=== PATIENT | male | born 1935 | race Caucasian/White ===

== ENCOUNTER 2017-05-05 05:45 | Inpatient (IN) | payer OTHER ==
[~2017-05-05] VITALS: Ht 175.3 cm; Wt 81.9 kg
[2017-05-05] VITALS (15 sets, daily range): BP systolic 82–162; BP diastolic 52–77
--- NOTE | 2017-05-05 12:50 | NUR ---
REC'D PT FROM RECOVERY ROOM S/P LEFT HIP REPLACEMENT. PT IS AAOX4. TELE #2 NSR. PT C/O 5 HEADACHE AND BACK PAIN. LUNG SOUNDS CLEAR. NO SOB NOTED. PT HAS INCISION WITH MARIELLA, TELFA 4X4, ABD DRESSING TO LEFT OUTER THIGH, CDI. HEMOVAC IN PLACE. PT HAS MANUEL CATH TO GRAVITY DRAINING YELLOW URINE. IV NOTED TO RFA. INTACT AND PATENT. ORIENTED PT TO CALL LIGHT. BED IN LOWEST POSITION. WILL CONTINUE TO MONITOR.
--- NOTE | 2017-05-05 13:22 | NUR ---
PT'S LU=[id number]/57 MAP=77. PT C/O BACK PAIN. MEDICATED WITH NORCO ORDERED (SEE MAR).
--- NOTE | 2017-05-05 13:35 | NUR ---
PT ENDORSED TO EMERY NELSON.
--- NOTE | 2017-05-05 13:49 | NUR ---
ASSUMED CARE OF PATIENT FROM EMERY SAUCEDA. DR ATWOOD PAGED FOR ADDITIONAL ORDERS, AWAITING CALL BACK.
--- NOTE | 2017-05-05 13:50 | NUR ---
PAGED DR ROSE. AWAITING CALL BACK
--- NOTE | 2017-05-05 14:15 | NUR ---
DR BECKHAM AT BEDSIDE TO EVALUATE PATIENT. AWARE OF CURRENT LOW BP AND H/H. WITH NEW ORDER TO TRANSFUSE 1 UNIT PRBC AND BOLUS 25O ML NS. BOLUS STARTED.
--- NOTE | 2017-05-05 14:45 | NUR ---
DR BECKHAM BACK AT BEDSIDE TO REEVALUATE PATIENT.
--- NOTE | 2017-05-05 15:48 | NUR ---
BLOOD TRANSFUSION 1 OF 1 STARTED TO RFA IV SITE. UNIT #[id number]. MONITORED FOR ANY REACTIONS, NONE NOTED AT THIS TIME.
[2017-05-05] MEDS ORDERED: LOSARTAN POTAS100 M1 PO (15:59)
[2017-05-05] MEDS ORDERED: K10 PO (16:01)
[2017-05-05] MEDS ORDERED: CENTRUM SILVER1 EACH PO (16:01)
[2017-05-05] MEDS ORDERED: CHLORTHALIDONE25 MG PO (16:01)
[2017-05-05] MEDS ORDERED: VITAMIN-D1000 IU PO (16:01)
[2017-05-05] MEDS ORDERED: CRESTOR10 M1 PO (16:02)
[2017-05-05] MEDS ORDERED: APAP500 MG PO (16:03)
--- NOTE | 2017-05-05 16:03 | NUR ---
BLOOD TRANSFUSION INFUSING WELL WITH NO ADVERSE REACTIONS. CURRENTLY INFUSING AT 100ML/HR TO RFA IV SITE. WILL CONTINUE TO MONITOR.
--- NOTE | 2017-05-05 16:20 | NUR ---
SEATER ASSEMBLER REPORTED BIGEMINY X4 BEATS. BLOOD TRANSFUSION ONGOING. PT ASYMPOMATIC. NO ACUTE DISTRESS NOTED. DR ATWOOD MADE AWARE.
[2017-05-05 16:32] LABS: MAGNESIUM 1.3 mg/dL (1.8-2.4); PHOSPHOROUS 3.5 mg/dL (2.5-4.9)
--- NOTE | 2017-05-05 17:17 | NUR ---
RECEIVED CALL FROM DR BECKHAM, UPDATED ON PATIENT'S CONDITION. BLOOD TRANSFUSION STILL INFUSING WELL WITH NO ADVERSE REACTIONS. WITH NEW ORDER FOR LACTATED RINGER'S. NOTED AND CARRIED OUT.
--- NOTE | 2017-05-05 19:20 | NUR ---
BLOOD TRANSFUSION COMPLETE. PT TOLERATED WELL WITHOUT ANY ADVERSE REACTIONS. IV ON RFA FLUSHED AND PATENT. VS: 97.1, 86, 117/68, 17, 98% ON RA. DENIES ANY NEEDS AT THIS TIME. GRANDDAUGHTER AT BEDSIDE, SUPPORTIVE OF CARE. PT CONTINUES TO USE I.S., APPROX 2500ML INSPIRED VOLUME NOTED. WILL CONTINUE TO MONITOR.
--- NOTE | 2017-05-05 19:30 | NUR ---
PT AAOX4, LUNG SOUNDS ARE CTA ON RA NOW SATING 98%. THE ABD IS SOFT, ROUND, NON-TENDER. PT IS ON TELE 2, NSR WITH PVC'S (85). PT DENIES ANY PAIN AT THIS MOMENT, GRAND DAUGHTER AT BEDSIDE. HEMOVAC NOTED AT LEFT HIP, NO SUNCTION IN HEMOVAC ORDERED. THERE IS AN IV IN THE RFA CURRENTLY INFUSING LR 75 ML/HR. THE BED IS IN THE LOWEST POSITION, 2X RAILS UP, CALL LIGHT WITHIN REACH. WILL CONTINUE TO MONITOR.
--- NOTE | 2017-05-05 22:15 | NUR ---
BLADDER TRAINING BEGUN FOR [facility] PAREDES TOMORROW AT 0900.
--- NOTE | 2017-05-05 22:34 | NUR ---
UA SENT DOWN TO LAB
[2017-05-05 22:50] LABS: microscopic required? YES; urine erythrocyte 3+ (NEGATIVE)
[2017-05-05 23:40] LABS: FREE T4 1.02 ng/dL (0.76-1.46); FREE THYROXINE INDEX 1.9 ug/dL (1.4-4.5); T4(THYROXINE) 4.9 ug/dL (4.7-13.3)
[2017-05-06 00:24] LABS: T3 TOTAL 0.83 ng/mL
--- NOTE | 2017-05-06 00:33 | NUR ---
PT IS SLEEPING, AUDIBLE SNORING PRESENT, NO DISTRESS NOTED. WILL CONTINUE TO MONITOR.
--- NOTE | 2017-05-06 01:08 | NUR ---
LAB CALLED TO SEE IF BOTH 0500 AND 1428 BMP AND CBC LAB DRAWS NEEDED TO BE COMPLETED. DR. SMITH AWARE AND WILL CANCEL THE 1428 LAB DRAWS.
--- NOTE | 2017-05-06 04:07 | NUR ---
DRAINED MANUEL FOR 20O ML. RESTARTED BLADDER TRAINING.
--- NOTE | 2017-05-06 05:26 | NUR ---
PAGEGATED DR. SMITH ABOUT CHANGING PRIMARY PHYSICIAN FROM DR. BECKHAM TO DR. GARCIA.
--- NOTE | 2017-05-06 05:40 | NUR ---
PT HAD SOME ABERRANT CONDUCTION. DR. SMITH MADE AWARE.
[2017-05-06 05:49] VITALS: BP 128/62
[2017-05-06 06:21] LABS: BASOPHIL % 0.5 % (0-2)
[2017-05-06 06:31] LABS: CALCIUM 8.7 mg/dL (8.5-10.1); CARBON DIOXIDE 30.8 mmol/L (21-32); CHLORIDE SERUM 107 mmol/L (98-107); CREATININE SERUM 1.3 mg/dL (0.7-1.3); GLUCOSE SERUM 161 mg/dL (74-106); MAGNESIUM 1.4 mg/dL (1.8-2.4); PHOSPHOROUS 4.1 mg/dL (2.5-4.9); POTASSIUM SERUM 3.5 mmol/L (3.5-5.1); SODIUM SERUM 139 mmol/L (136-145)
--- NOTE | 2017-05-06 06:55 | NUR ---
DR. BECKHAM REMOVED HEMOVAC.
[2017-05-06 07:50] VITALS: BP 139/64
[2017-05-06 07:54] LABS: PLATELET COUNT 109 x10^3mcL (130-400)
--- NOTE | 2017-05-06 09:00 | NUR ---
PT ON BED, AWAKE, ALERT, AND ORIENTED. HAS NO COMPLAINT OF PAIN, SOB, OR DIZZINESS. RESPONDS WELL TO QUESTION AND ANSWER. PT IS FORGETFUL AT TIMES. CLEAR MAHI LUNG FIELD, SYMMETRICAL CHEST EXPANSION AND UNLABORED. ACTIVE BOWEL SOUNDS NOTED. DRESSING IS CDI ON THE LEFT HIP. DR. BECKHAM REMOVED THE HEMOVAC THIS MORNING. F/C IN PLACE. WILL CONTINUE TO MONITOR
--- NOTE | 2017-05-06 10:20 | NUR ---
F/C HAS BEEN D/C. WILL CONTINUE TO MONITOR FOR URINE OUTPUT.
--- NOTE | 2017-05-06 12:30 | NUR ---
PRN PAIN MED GIVEN COVERAGE. PT AMBULATED TO THE CHAIR WITH PHYSICAL THERAPY
[2017-05-06 13:35] VITALS: BP 114/52
--- NOTE | 2017-05-06 15:00 | NUR ---
PT ON BED, ASLEEP. WILL CONTINUE TO MONITOR
--- NOTE | 2017-05-06 17:36 | NUR ---
PT ON BED, AWAKE, ALERT, AND ORIENTED. EATING DINNER WITH GRAND DAUGHTER ASSISTING IN HIS MEAL. PRN PAIN MED GIVEN COVERAGE
[2017-05-06 18:10] VITALS: BP 99/51
--- NOTE | 2017-05-06 19:50 | NUR ---
PT IS AAOX3, FORGETFUL. FAMILY AT BEDSIDE. PT IS ON TELE 2, NSR WITH PVCS (87). THE ABD IS SOFT, ROUND, NON-TENDER. LUNG SOUND ARE CTA ON RA. THERE IS A DRESSING TO THE L HIP THAT IS CDI. THERE IS AN IV IN THE RFA CURRENTLY INFUSING 70 ML/HR NS. THE BED IS IN THE LOWEST POSITION AND THE CALL LIGHT IS WITHIN REACH. WILL CONTINUE TO MONITOR.
[2017-05-06 21:22] VITALS: BP 109/57
--- NOTE | 2017-05-06 23:38 | NUR ---
PT IS VERY FORGETFUL. HAD AN EPISODE WHERE HE DIDN'T REMEMBER WHO HE WAS. DOESN'T REMEMBER HAVING AN OPERATION ON HER LEFT HIP. DR. SMITH AWARE.
--- NOTE | 2017-05-07 01:24 | NUR ---
PT SLEEPING COMFORTABLY. EVEN, UNLABORED BREATHING. BED IN LOWEST POSITION, CALL LIGHT WITHIN REACH. WILL CONTINUE TO MONITOR.
--- NOTE | 2017-05-07 03:41 | NUR ---
PT HR WENT UP TO THE 140'S WHEN ATTEMPING TO USE THE URINAL. CURRENTLY AT 97. WILL CONTINUE TO MONITOR.
[2017-05-07 05:22] VITALS: BP 123/66
[2017-05-07 06:22] LABS: ALKALINE PHOSPHATASE 30 U/L (46-116); ALT/SGPT 18 U/L (16-63); AST/SGOT 36 U/L (15-37); BILIRUBIN TOTAL 0.6 mg/dL (0.20-1.00); CALCIUM 8.6 mg/dL (8.5-10.1); CARBON DIOXIDE 28.8 mmol/L (21-32); CHLORIDE SERUM 102 mmol/L (98-107); CREATININE SERUM 1.2 mg/dL (0.7-1.3); GLUCOSE SERUM 104 mg/dL (74-106); POTASSIUM SERUM 3.1 mmol/L (3.5-5.1); SODIUM SERUM 140 mmol/L (136-145)
[2017-05-07 06:24] LABS: ALBUMIN 2.4 g/dL (3.4-5.0); TOTAL PROTEIN, SERUM 5.6 g/dL (6.4-8.2)
--- NOTE | 2017-05-07 06:33 | NUR ---
PAGEGATED DR. SMITH ABOUT NEW LAB POTASSIUM OF 3.1.
--- NOTE | 2017-05-07 06:35 | NUR ---
PT IS RESTING COMFORTABLY IN BED. ALL NEEDS HAVE BEEN MET THROUGHOUT THE NIGHT. CALL LIGHT WITHIN REACH. WILL ENDORSE TO MORNING SHIFT.
--- NOTE | 2017-05-07 07:55 | NUR ---
AWAKE,ALERT W/PERIODS OF CONFUSION AND FORGETFULNESS ,RE-ORIENTED TO PLACE AND SURROUNDINGS.KEEP ASKING QUESTIONS REGARDING HIS CONDITION ,ALL QUESTIONS ANSWERED BUT PT. KEEP FORGETTING AND KEEP REPEATING ASKING THE SAME QUESTIONS. S/P LEFT TOTAL HIP REPLACEMENT W/ DRESSING CDI ,W/ ABDUCTOR PILLOW IN PLACE W/ TRAPEZE BAR,TO ENCOURAGE TO USE IT DURING MOVEMENT.DEMONSTRATE TO PT. HOW TO USED THE TRAPEZE BAR DURING MOVEMENT.ABLE TO USED URINAL. REQUIRES MOD.ASSIST. W/ ADL NEEDS.CALL LIGHT W/ IN REACH.DENIES ANY PAIN AT THIS TIME.CONT. IV FLUIDS ORDERED. WILL CONT. PLAN OF CARE.
[2017-05-07 08:31] LABS: BASOPHIL % 0.4 % (0-2); RED CELL DISTRIBUTION WIDTH 12.9 % (11.5-14.5)
[2017-05-07 08:33] LABS: PLATELET COUNT 115 x10^3mcL (130-400)
--- NOTE | 2017-05-07 09:00 | NUR ---
DR. GARCIA IN HER MADE ROUNDS W/ OTHER MEDICAL STAFF AND UPDATED PT. PLAN OF CARE.
[2017-05-07 09:32] VITALS: BP 123/63
--- NOTE | 2017-05-07 13:30 | NUR ---
PT. OOB TO CHAIR AND AMBULATE W/ PHYSICAL THERAPY W/ WALKER.PT. C/O PAIN IN LEFT HIP MEDICATED FOR PAIN TORADOL ORDERED.CALL LIGHT W/ IN REACH.
[2017-05-07 13:47] VITALS: BP 102/55
[2017-05-07 16:46] VITALS: BP 126/57
--- NOTE | 2017-05-07 17:00 | NUR ---
PT. RESTING COMFORTABLY IN BED DENIES ANY PAIN NO ACUTE DISTRESS NOTED.EAT DINNER FAILY ,CONT. IV FLUIDS ORDERED.
--- NOTE | 2017-05-07 19:53 | NUR ---
RECEIVED PT FROM PREVIOUS SHIFT NURSE. PT AOX4. TELE #2, NSR WITH PVC, HR 84. DENIES CP/PRESSURE. PULSES PRESENT, NO EDEMA NOTED. LUNG SOUNDS CLEAR, ON RA. DENIES SOB/DIFFICULTY BREATHING. BOWEL SOUNDS ACTIVE. VOIDS FREELY. ABDUCTOR PILLOW IN PLACE. HIP DRESSING IN PLACE, CDI. IV IN RFA, INTACT AND PATENT. BED IN LOWESET POSITION. CALL LIGHT WITHIN REACH. WILL CONTINUE TO MONITOR.
[2017-05-07 21:58] VITALS: BP 123/57
[2017-05-07 22:23] LABS: BASOPHIL % 0.3 % (0-2); RED CELL DISTRIBUTION WIDTH 12.6 % (11.5-14.5)
[2017-05-07 22:28] LABS: PLATELET COUNT 106 x10^3mcL (130-400)
[2017-05-07 22:51] LABS: rbc morphology (normal/abnorm) ABNORMAL (NORMAL)
--- NOTE | 2017-05-07 23:00 | NUR ---
PT HEP LOCKED FOR LAB DRAW IN AM. DR. SMITH NOTIFIED.
--- NOTE | 2017-05-08 00:54 | NUR ---
PT RESTING IN BED. RR EVEN AND UNLABORED. NO ACUTE DISTRESS NOTED. BED IN LOWEST POSITION. CALL LIGHT WITHIN REACH. WILL CONTINUE TO MONITOR.
[2017-05-08 05:51] VITALS: BP 142/65
[2017-05-08 07:27] LABS: CALCIUM 8.4 mg/dL (8.5-10.1); CARBON DIOXIDE 28.1 mmol/L (21-32); CHLORIDE SERUM 105 mmol/L (98-107); GLUCOSE SERUM 99 mg/dL (74-106); SODIUM SERUM 140 mmol/L (136-145)
[2017-05-08 07:57] LABS: BASOPHIL % 0.3 % (0-2); RED CELL DISTRIBUTION WIDTH 13.1 % (11.5-14.5)
[2017-05-08 07:58] LABS: PLATELET COUNT 119 x10^3mcL (130-400)
--- NOTE | 2017-05-08 08:00 | NUR ---
AWAKE,ALERT W/ PERIODS OF CONFUSION AND FORGETFULNESS,DENIES ANY PAIN AT THIS TIME.CALL LIGHT W/ IN REACH. S/P TOTAL LEFT HIP REPLACEMENT.LEFT HIP DRESSING CDI W/ ABDUCTOR PILLOW IN PLACE.VOIDING WELL IN URINAL. CONT. IV FLUIDS ORDERED.REQUIRES. MOD. ASSIST W/ ADL NEEDS. OOB W/ PHYSICAL THERAPY .STILL AWAITING FOR TRANSFER PLACEMENT TO GO TO REHAB TO CONT. TX FOR.P.T.WILL CONT. PLAN OF CARE.
[2017-05-08 08:02] LABS: rbc morphology (normal/abnorm) ABNORMAL (NORMAL)
--- NOTE | 2017-05-08 08:10 | NUR ---
DR. RITTER HERE MADE ROUNDS W/ OTHER MEDICAL STAFF AND UPDTAED PT. PLAN OF CARE.AND ALSO DR. OREILLY HERE AND NOTIFIED REGARDING ABNORMALS LAB RESULTS H/H .02/25 MADE AWARE W/ NEW ORDERS MADE.
[2017-05-08 09:40] VITALS: BP 124/62
--- NOTE | 2017-05-08 11:30 | NUR ---
DR. OREILLY NOTIFIED ALSO REG. K-LEVEL RESULT 3.0 AND MADE AWARE W/ ORDERS RECIEVED.
--- NOTE | 2017-05-08 11:45 | NUR ---
BLOOD TRANSFUSION NOT READY YET WILL FOLLOW UP FROM BLOOD BANK.
--- NOTE | 2017-05-08 12:00 | NUR ---
PT. HAS CONSENT SIGNED TO HAVE BLOOD TRANSFUSION AND HE DID NOT MENTIONED ABOUT HIS BELIEF THAT HE CAN NOT GET BLOOD TRANSFUSION.
--- NOTE | 2017-05-08 12:00 | NUR ---
DR. OREILLY HERE AND SEEN THE PT. AND SPEAK TO PT.AND EXPLAINED TO HIM THAT HE NEEDS BLOOD TRANSFUSIONS PT. AGREED.
--- NOTE | 2017-05-08 14:00 | NUR ---
FOLLOW UP THE BLOOD TRANSFUSION FROM BLOOD BANK STILL NOT READY ACCORDING TO BLOOD BANK THEY WILL CALL WHEN THE BLOOD READY.
--- NOTE | 2017-05-08 15:00 | NUR ---
K-RIDER HANGED AT THIS KARTHIKEYAN INFUSING WELL TO RT. DUC.
--- NOTE | 2017-05-08 15:46 | NUR ---
RE- INSERTED A NEW IV ACCESS IN RT. AC FOR BLOOD TRANSFUSION.STILL AWAITING FOR THE BLOOD FROM BLOOD BANK THEY WILL CALL WHE READY.PT. DENIES ANY PAIN AT THIS TIME. CALL LIGHT W/ IN REACH.
--- NOTE | 2017-05-08 16:00 | NUR ---
DR. BECKHAM IN HERE SO SEE THE PT. AND EXPLAINED TO PT. THAT HE NEEDS BLOOD TRANSFUSION BEFORE HE WILL TRANSFER TO OTHER FACILITY AND PT. DID NOT MENTIONED ANYTHING ABOUT HIS BELIEFS THAT HE CAN NOT GET BLOOD TRANSFUSION.
[2017-05-08 16:53] VITALS: BP 112/62
--- NOTE | 2017-05-08 17:20 | NUR ---
PT. VERY UPSET REFUSED TO HAVE BLOOD TRANSFUSION AND REFUSED TO EAT DINNER BECAUSE HE FOUND OUT THAT HE CAN NOT GO TO OTHER FACILTY TONIGHT TO CONT. REHAB.TX DISCHARGE GLUE PLANT OPERATOR LIZA SPEAK TO PT. THAT PT. WILL TRANSFER T[place]OROW .PT. AQUILES JUST ARRIVE TO VISIT PT. HERE AND I SPEAK TO HER WHAT THE REASON FOR REFUSING HIS BLOOD TRANSFUSION THEN THE GRAND DAUGHTER TOLD ME PT. VASILIY WITNESS BELIEF,SO PT. DID NOT MENTIONED ANYTHING ABOUT HIS BELIEFS.SO PT. GRANDDAUGHTER SPEAK TO CHARGE NURSE ZENA.AND NOTIFIED DR. OREILLY REGARDING THIS MATTER AND WITH ORDERS D/C BLOOD TRANSFUSION.
--- NOTE | 2017-05-08 17:30 | NUR ---
PT. CALLED ME AND APOLOGIZED TO ME INFRONT OF HER GRAND DAUGHTER THAT HE DID NOT MENTIONED ANYTHING TO ME ABOUT HIS BELIEFS THAT HE CAN NOT GET BLOOD TRANSFUSION NOT UNTIL HER GARAND DAUGHTER ARRIVE TO VISIT HIM.
--- NOTE | 2017-05-08 17:53 | NUR ---
PATIENT AND FAMILY TOLD US, DAVID IS NONDENOMINATIONAL, NO BLOOD TRANSFUSION PER THE BELIEF. PATIENT ALERT AND ORIENTED X 4, DENIES DIZZINESS , V/S STABLE. DR. OREILLY MADE AWARE, TRANSFUSION ORDER D/C'D.
--- NOTE | 2017-05-08 19:47 | NUR ---
RECEIVED PT FROM PREVIOUS SHIFT NURSE. PT AOX4. TELE#2, NSR WITH PVCS, HR 90. DENIES CP/PRESSURE. PULSES PRESEN, NO EDEMA NOTED. LUNG SOUNDS CLEAR, ON RA. DENIES SOB/DIFFICULTY BREATHING. BOWEL SOUNDS ACTIVE. VOIDS FREELY. USES URINAL. GENERALIZED WEAKNESS. L. HIP DRESSING IN PLACE, CDI. IV IN RAC, INTACT AND PATENT. BED IN LOWEST POSITION. CALL LIGHT WITHIN REACH. WILL CONTINUE TO MONITOR.
[2017-05-08 21:27] VITALS: BP 128/66
--- NOTE | 2017-05-09 02:21 | NUR ---
PT RESTING IN BED. RR EVEN AND UNLABORED. NO ACUTE DISTRESS NOTED. CALL LIGHT WITHIN REACH. BED IN LOWEST POSITION. WILL CONTINUE TO MONITOR.
[2017-05-09 05:28] VITALS: BP 118/65
[2017-05-09 06:33] LABS: CALCIUM 8.5 mg/dL (8.5-10.1); CARBON DIOXIDE 30.2 mmol/L (21-32); CHLORIDE SERUM 107 mmol/L (98-107); GLUCOSE SERUM 99 mg/dL (74-106); SODIUM SERUM 142 mmol/L (136-145)
[2017-05-09 07:33] LABS: POTASSIUM SERUM 2.8 mmol/L (3.5-5.1)
[2017-05-09 07:44] LABS: BASOPHIL % 0.5 % (0-2); PLATELET COUNT 157 x10^3mcL (130-400); RED CELL DISTRIBUTION WIDTH 12.8 % (11.5-14.5)
[2017-05-09 07:51] LABS: rbc morphology (normal/abnorm) ABNORMAL (NORMAL)
[2017-05-09 08:58] VITALS: BP 122/55
--- NOTE | 2017-05-09 09:20 | NUR ---
PT ON BED, AWAKE, ALERT, AND ORIENTED. HAS NO COMPLAINT OF PAIN, SOB, OR DIZZINESS. RESPONDS WELL TO QUESTION AND ANSWER. GRANDDAUGTHER AT BEDSIDE. CLEAR MAHI LUNG FIELD, SYMMETRICAL CHEST EXPANSION AND UNLABORED. ACTIVE BOWEL SOUNDS NOTED, NON DISTENDED ABDOMEN. DRESSING IS CDI. SIDE RAILS UP, CALL LIGHT WITHIN REACH, WILL CONTINUE TO MONITOR
--- NOTE | 2017-05-09 13:31 | NUR ---
RN WAS MADE AWARE BY PT AND PT'S FAMILY MEMBER THEY WANT TO SEE OTHER OPTIONS AVAILABLE AND WOULD ALSO LIKE TO LOOK IN TO THE POSSIBILITY OF HOME HEALTH PHYSICAL THERAPY
[2017-05-09 13:46] VITALS: BP 115/64
--- NOTE | 2017-05-09 14:25 | NUR ---
CASE MANAGEMENT WAS ABLE TO TALK TO THE PT AND PT'S FAMILY MEMBER. DR. CAGE PRESENT WELL
--- NOTE | 2017-05-09 15:30 | NUR ---
PT ON BED, AWAKE, ALERT, AND ORIENTED. HAS NO COMPLAINT OF PAIN, SOB, OR DIZZINESS. RESPONDS WELL TO QUESTION AND ANSWER. SIDE RAILS UP, CALL LIGHT WTIHIN REACH, WILL CONTINUE TO MONITOR
[2017-05-09 16:45] VITALS: BP 127/64
--- NOTE | 2017-05-09 17:40 | NUR ---
PT ON BED, AWAKE, ALERT, AND ORIENTED. CASE MANAGEMENT AT BEDSIDE TALKING TO THE PATIENT
[2017-05-09 19:13] LABS: CALCIUM 8.4 mg/dL (8.5-10.1); CARBON DIOXIDE 29.2 mmol/L (21-32); CHLORIDE SERUM 106 mmol/L (98-107); CREATININE SERUM 1.1 mg/dL (0.7-1.3); GLUCOSE SERUM 121 mg/dL (74-106); POTASSIUM SERUM 3.2 mmol/L (3.5-5.1); SODIUM SERUM 141 mmol/L (136-145)
--- NOTE | 2017-05-09 19:57 | NUR ---
PT IS A/O X3, BUT FORGETFUL, ABLE TO TELL WHAT HE NEEDS. LUNG SOUND CLEAR BILATERAL, NO COUGH, NO SOB, PT IS ON TELE 2, NSR, WITH PVC, DENY ANY CHEST PAIN OR DISCOMFORT, BOWEL SOUND PRESENT ALL 4 QUADRANTS, NO DISTENTION, NO TENDER. PEDAL PULSE PRESENT BOTH FEET, NO EDEMA NOTED, S/P SURGERY AT LEFT HIP, DRESSING INTACT, NO DRAINAGE NOTED, ABDUCTED PILLOW IN PLACE, PT DENY ANY PAIN OR DISCOMFORT AT THIS MOMENT. IV AT RIGHT FA, SALINE LOCK, DRESSING INTACT, FLUSHED WELL, ALL ADLS ASSIST, ALL NEED MET, CALL LIGHT IN REACH, WILL CONTINUE TO MONITOR.
--- NOTE | 2017-05-09 20:14 | NUR ---
REPORT TO DR. SUNSHINE REGARDING THE POTASSIUM 3.2, WAITING FOR NEW ORDER. WILL CONTINUE TO MONITOR THE PT.
[2017-05-09 21:20] VITALS: BP 120/65
--- NOTE | 2017-05-10 05:07 | NUR ---
PT IS AWAKE, VERBAL RESPONSIVE, BUT FORGETFUL, NO RESPIRATORY DISTRESS, DENY ANY PAIN OR DISCOMFORT, IV AT RIGHT AC, SALINE LOCK, FLUSHED WELL, DRESSING INTACT, ALL ADLS ASSIST, ALL NEED MET, CALL LIGHT IN REACH, WILL CONTINUE TO MONITOR.
[2017-05-10 05:33] VITALS: BP 127/66
[2017-05-10 07:13] LABS: BASOPHIL % 0.8 % (0-2); PLATELET COUNT 195 x10^3mcL (130-400); RED CELL DISTRIBUTION WIDTH 13.1 % (11.5-14.5)
[2017-05-10 07:18] LABS: rbc morphology (normal/abnorm) ABNORMAL (NORMAL)
[2017-05-10 09:24] LABS: CALCIUM 8.4 mg/dL (8.5-10.1); CARBON DIOXIDE 28.6 mmol/L (21-32); CHLORIDE SERUM 108 mmol/L (98-107); GLUCOSE SERUM 95 mg/dL (74-106); POTASSIUM SERUM 3.5 mmol/L (3.5-5.1); SODIUM SERUM 142 mmol/L (136-145)
[2017-05-10 09:37] VITALS: BP 127/66
--- NOTE | 2017-05-10 10:48 | NUR ---
D/C INSTRUCTION DONE. IV AND TELE D/C
--- NOTE | 2017-05-10 14:38 | NUR ---
PHYSICAL THERAPY DAILY NOTES CO-SIGN All documentation done by the Hot Patcher for 05/10/17 has been reviewed. I agree with the documentation. Reviewed/Co-Signed by: Padmini De Paz PT Documentation Done by: Nicole Parham, ASSOCIATE PROFESSOR OF BIOLOGY
== END 2017-05-10 13:12 | DRG 469 ==
LOC: DU 05:45 → MU 05:45 → OR 10:29 → EDSTATUS 10:30 → MU 10:31 → DU 12:54
PROVIDERS: Neuromusculoskeletal Medicine, Sports Medicine; ADMIT Family Medicine
PROC: 30233N1 Transfusion of Nonautologous Red Blood Cells into Peripheral Vein, Percutaneous Approach (ICD-10-PCS; 2017-05-05)
PROC: 0SRB04A Replacement of Left Hip Joint with Ceramic on Polyethylene Synthetic Substitute, Uncemented, Open Approach (ICD-10-PCS; principal; 2017-05-05 07:30)
DX: M16.12 Unilateral primary osteoarthritis, left hip (principal); N17.0 Acute kidney failure with tubular necrosis; E43 Unspecified severe protein-calorie malnutrition; D62 Acute posthemorrhagic anemia; I10 Essential (primary) hypertension; E78.5 Hyperlipidemia, unspecified; Z68.26 Body mass index [BMI] 26.0-26.9, adult; Z88.2 Allergy status to sulfonamides; G51.0 Bell's palsy; Z86.73 Personal history of transient ischemic attack (TIA), and cerebral infarction without residual deficits; E87.6 Hypokalemia
CPT/HCPCS: 83880; 84439; 94150; 97110-GP; 97116-GP; 97530-GP; C1713; C1776; J0690; J1170; J1650; J1885; J2250; J2704; J2916; J3010; J3475; J3480; J3490; J7030; J7040; J7120; P9016; Q0092; Q0163